=== PATIENT | female | born 1975 | race Caucasian/White ===

== ENCOUNTER 2020-04-19 15:37 | Emergency (ER) | payer SELFPAY ==
[2020-04-19] MEDS ORDERED: ONDANSETRON 4 MG TAB.RAPDIS PO ONE (15:59)
--- NOTE | 2020-04-19 16:03 | ER Document Report ---
ED Medical Screen (RME) - General Chief Complaint: Flank Pain Stated Complaint: FLANK PAIN Time Seen by Provider: 04/19/20 15:49 Primary Care Provider: AZALEA RYDER MD [Primary Care Provider] - Follow up as needed Mode of Arrival: Wheelchair Information source: Patient - HPI Notes: Patient is a 45-year-old female with a solitary kidney who presents with right flank pain that began this morning. Patient states that she has had urinary retention intermittently for the past 2 months with frequent UTIs. However, she began having sharp right flank pain this morning. She reports increased pressure like she needs to urinate but is unable to, and has not urinated since this morning. Patient was diagnosed with solitary kidney 8 years ago as she was found to only have a right kidney. She reports nausea and vomiting. - Related Data Allergies/Adverse Reactions: No Known Allergies Allergy (Verified 04/19/20 15:47) Physical Exam - Vital signs Vitals: Temp Pulse Resp BP Pulse Ox 98.4 F 116 H 20 137/108 H 96 04/19/20 15:45 04/19/20 15:45 04/19/20 15:45 04/19/20 15:45 04/19/20 15:45 - Abdominal Tenderness: Tender, Other - R abdomen; + CVA tenderness on the right. Course - Re-evaluation Re-evalutation: I have greeted and performed a rapid initial assessment of this patient. A comprehensive ED assessment and evaluation of the patient, analysis of test results and completion of medical decision making process will be conducted by an additional ED providers. - Vital Signs Vital signs: Temp Pulse Resp BP Pulse Ox 98.4 F 116 H 20 137/108 H 96 04/19/20 15:45 04/19/20 15:45 04/19/20 15:45 04/19/20 15:45 04/19/20 15:45 Doctor's Discharge - Discharge Referrals: AZALEA RYDER MD [Primary Care Provider] - Follow up as needed
[2020-04-19 16:35] LABS: ABSOLUTE BASOPHILS # (AUTO) 0.1 10^3/uL (0.0-0.2); ABSOLUTE EOSINOPHILS # (AUTO) 0.1 10^3/uL (0.0-0.6); ABSOLUTE LYMPHOCYTES (AUTO) 1.8 10^3/uL (0.5-4.7); ABSOLUTE MONOCYTES (AUTO) 0.9 10^3/uL (0.1-1.4); ABSOLUTE NEUT (AUTO) 12.9 10^3/uL (1.7-8.2); BASOPHILS % (AUTO) 0.6 % (0-2); EOSINOPHILS % (AUTO) 0.7 % (0-6); HEMATOCRIT 48.4 % (36.0-47.0); HEMOGLOBIN 17.2 g/dL (12.0-15.5); LYMPHOCYTES % (AUTO) 11.4 % (13-45); MEAN CORPUSCULAR HEMOGLOBIN 29.7 pg (27.0-33.4); MEAN CORPUSCULAR HGB CONC 35.6 g/dL (32.0-36.0); MEAN CORPUSCULAR VOLUME 83 fl (80-97); MONOCYTES % (AUTO) 5.5 % (3-13); PLATELET COUNT 250 10^3/uL (150-450); RED BLOOD COUNT 5.81 10^6/uL (3.72-5.28); RED CELL DISTRIBUTION WIDTH 13.6 % (11.5-14.0); SEGMENTED NEUTROPHILS % (AUTO) 81.8 % (42-78); TOTAL CELLS COUNTED % (AUTO) 100 %; WHITE BLOOD COUNT 15.7 10^3/uL (4.0-10.5)
[2020-04-19 16:56] LABS: ALBUMIN 4.7 g/dL (3.5-5.0); ALKALINE PHOSPHATASE 67 U/L (38-126); ANION GAP 14 (5-19); ASPARTATE AMINO TRANSFERASE 21 U/L (14-36); BILIRUBIN,DIRECT 0.1 mg/dL (0.0-0.4); BILIRUBIN,TOTAL 0.6 mg/dL (0.2-1.3); BLOOD UREA NITROGEN 9 mg/dL (7-20); CALCIUM 9.8 mg/dL (8.4-10.2); CARBON DIOXIDE 20 mmol/L (22-30); CHLORIDE 103 mmol/L (98-107); GLUCOSE 121 mg/dL (75-110); POTASSIUM 4.3 mmol/L (3.6-5.0); TOTAL PROTEIN 8.4 g/dL (6.3-8.2)
--- NOTE | 2020-04-19 17:06 | RADIOLOGY REPORT (SQ) ---
EXAM DESCRIPTION: CT ABD/PELVIS NO ORAL OR IV IMAGES COMPLETED DATE/TIME: 04/19/2020 4:43 pm REASON FOR STUDY: flank pain COMPARISON: None. TECHNIQUE: CT scan of the abdomen and pelvis performed without intravenous or oral contrast. Images reviewed with lung, soft tissue, and bone windows. Reconstructed coronal and sagittal MPR images revi ewed. All images stored on PACS. All CT scanners at this facility use dose modulation, iterative reconstruction, and/or weight based d osing when appropriate to reduce radiation dose to as low as reasonably achievable (ALARA). [facility]: Dose Right [facility]: CareDose [facility]: Dose Right [facility]: Teradose 4D [facility]: Smart [employer] RADIATION DOSE: CT Rad equipment meets quality standard of care and radiation dose reduction techniq ues were employed. CTDIvol: 17.9 mGy. DLP: 911 mGy-cm.mGy. LIMITATIONS: None. FINDINGS: LOWER CHEST: No significant findings. No nodules or infiltrates. NON-CONTRASTED LIVER, SPLEEN, ADRENALS: Evaluation limited by lack of IV contrast. No identified sign ificant masses. PANCREAS: No masses. No peripancreatic inflammatory changes. GALLBLADDER: No identified stones by CT criteria. No inflammatory changes to suggest cholecystitis. RIGHT KIDNEY AND URETER: No suspicious masses. Assessment limited by lack of IV contrast. No signif icant calcifications. No hydronephrosis or hydroureter. LEFT KIDNEY AND URETER: The left kidney is absent. No abnormal findings are seen in the left renal f nilay. AORTA AND RETROPERITONEUM: No aneurysm. No retroperitoneal masses or adenopathy. BOWEL AND PERITONEAL CAVITY: No masses or inflammatory changes. No free fluid. Incidental note is m frankie fecalization of several nondistended loops of small bowel. APPENDIX: Normal. PELVIS, BLADDER, AND ABDOMINAL WALL:No abnormal masses. No free fluid. Bladder normal. BONES: No significant findings. OTHER: No other significant finding. IMPRESSION: No evidence of urolithiasis or obstructive uropathy. No left kidney is demonstrated ; g iven normal morphology of the left adrenal gland, favor iatrogenic absence. Recommend correlation wi surgical history. Incidental finding of fecalized loops of small bowel suggests delayed transit. No evidence of bowel obstruction or acute intra-abdominal infectious/ inflammatory changes. COMMENT: Quality ID # [id number]: Final reports with documentation of one or more dose reduction techniques (e.g., Automated exposure control, adjustment of the mA and/or kV according to patient size, use of iterative reconstruction technique) TECHNICAL DOCUMENTATION: JOB ID: [id number] 2010 [employer]- All Rights Reserved Reading location - IP/workstation name: [email or web address]
--- NOTE | 2020-04-19 17:14 | ER Document Report ---
ED GI/ - General Chief Complaint: Flank Pain Stated Complaint: FLANK PAIN Time Seen by Provider: 04/19/20 15:49 Primary Care Provider: [facility] [Provider Group] - Follow up as needed AZALEA RYDER MD [ACTIVE STAFF] - Follow up as needed Mode of Arrival: Wheelchair Information source: Patient Notes: 45-year-old female history of only one kidney presents to the emergency room complaining of urinary retention with dysuria for the past 3 weeks. States she has been at [facility] twice in the past month for urinary tract infections. States she finished her antibiotics 3 weeks ago and symptoms started 2 days later. Has not been seen for symptoms prior to today. States she has not been able to urinate since early this morning. Complains of fever of 101.7. Took ibuprofen this morning around 6 AM for her symptoms. She denies any nausea, vomiting, no shortness of breath, no difficulty breathing. TRAVEL OUTSIDE OF THE [place] IN LAST 30 DAYS: No - Related Data Allergies/Adverse Reactions: No Known Allergies Allergy (Verified 04/19/20 15:47) Past Medical History - General Information source: Patient - Social History Smoking Status: Current Every Day Smoker Frequency of alcohol use: None Drug Abuse: None Family History: Reviewed & Not Pertinent Pulmonary Medical History: Reports: Hx Asthma Past Surgical History: Reports: Hx Section, Hx Tubal Ligation Review of Systems - Review of Systems Constitutional: Chills, Fever EENT: No symptoms reported Cardiovascular: No symptoms reported Respiratory: No symptoms reported Gastrointestinal: No symptoms reported Genitourinary: Dysuria, Retention Musculoskeletal: No symptoms reported Skin: No symptoms reported Neurological/Psychological: No symptoms reported -: Yes All other systems reviewed and negative Physical Exam - Vital signs Vitals: Temp Pulse Resp BP Pulse Ox 98.4 F 116 H 20 137/108 H 96 04/19/20 15:45 04/19/20 15:45 04/19/20 15:45 04/19/20 15:45 04/19/20 15:45 - General General appearance: Appears well, Alert In distress: Moderate - Respiratory Respiratory status: No respiratory distress Chest status: Nontender Breath sounds: Normal Chest palpation: Normal - Cardiovascular Rhythm: Tachycardia Heart sounds: Normal auscultation Murmur: No - Abdominal Inspection: Normal Distension: No distension Bowel sounds: Normal Tenderness: Nontender Organomegaly: No organomegaly - Genitourinary External exam: Normal. No: Lesions, Laceration Speculum exam: Normal, Cervix closed. No: Vaginal discharge, Lesions Vaginal bleeding: None Bimanuel exam: Normal, Cervical motion tender. No: Bladder/Urethral tender, Adnexal mass, Adnexal tenderness, Uterus enlarged Notes: [employer] Kenny PCT present during pelvic exam - Back Back: Normal, CVA tenderness - Right-sided - Neurological Neuro grossly intact: Yes Cognition: Normal Orientation: AAOx4 Megan Coma Scale Eye Opening: Spontaneous Megan Coma Scale Verbal: Oriented [place] Coma Scale Motor: Obeys Commands Megan Coma Scale Total: 15 Speech: Normal Motor strength normal: LUE, RUE, LLE, RLE Sensory: Normal - Skin Skin Temperature: Warm Skin Moisture: Dry Skin Color: Normal Course - Re-evaluation Re-evalutation: 04/19/20 18:10 Patient remains uncomfortable. Elevated white count, positive urine for infection. Blood cultures, IV Rocephin, bladder scanner, Dugan insertion, CT abdomen pelvis with IV contrast to rule out pyelonephritis., IV pain medication. 04/19/20 20:00 Patient is resting comfortably she is currently pain-free on exam. She denies any pain. Only had 72 cc of urine on the bladder scanner. Did not put a Dugan catheter in. Benign pelvic exam. Counseled to push fluids. Will be notified if any changes to her antibiotics based on her urine culture. Patient states she has been on both Keflex and Cipro. Will discharge home on Macrodantin and Pyridium. She was counseled on the importance of an outpatient follow-up with a urologist. Patient was given strict return to the emergency room guidelines. Return for any new or worsening symptoms. All questions were answered. Patient verbalized understanding and agrees with plan of care. 04/19/20 22:54 04/19/20 22:55 - Vital Signs Vital signs: Temp Pulse Resp BP Pulse Ox 98.6 F 105 H 16 151/93 H 98 04/19/20 20:51 04/19/20 20:51 04/19/20 20:51 04/19/20 20:51 04/19/20 20:51 - Laboratory Result Diagrams: 04/19/20 16:19 04/19/20 16:19 Laboratory results interpreted by me: 04/19/20 04/19/20 04/19/20 16:19 16:19 17:30 WBC 15.7 H RBC 5.81 H Hgb 17.2 H Hct 48.4 H Lymph % (Auto) 11.4 L Absolute Neuts (auto) 12.9 H Seg Neutrophils % 81.8 H Carbon Dioxide 20 L Glucose 121 H Total Protein 8.4 H Urine Protein 100 H Urine Blood MODERATE H Ur Leukocyte Esterase MODERATE H - Diagnostic Test Radiology reviewed: Reports reviewed Discharge - Discharge Clinical Impression: UTI (urinary tract infection) Qualifiers: Urinary tract infection type: site unspecified Hematuria presence: without hematuria Qualified Code(s): N39.0 - Urinary tract infection, site not specified Condition: Stable Disposition: HOME, SELF-CARE Instructions: Nitrofurantoin ([facility]), Urinary Anesthetic Agent ([facility]), Urinary Tract Infection ([facility]) Additional Instructions: Push fluids. Antibiotics and Pyridium as prescribed. Outpatient follow-up with urologist as discussed. Return to the emergency room for any new or worsening symptoms. Prescriptions: Nitrofurantoin Monohyd/M-Cryst [Macrobid 100 mg Capsule] 100 mg PO BID 7 Days #14 cap Phenazopyridine HCl [Pyridium 200 mg Tablet] 200 mg PO TID #6 tablet Referrals: AZALEA RYDER MD [ACTIVE STAFF] - Follow up as needed [facility] [Provider Group] - Follow up as needed
[2020-04-19] MEDS ORDERED: CEFTRIAXONE 1 GM/D5W RTU 1 GM/50 ML RTUPB IV ONE (17:15)
[2020-04-19 17:53] LABS: APPEARANCE,URINE TURBID; BILIRUBIN,URINE NEGATIVE (NEGATIVE); COLOR,URINE YELLOW; GLUCOSE, URINE NEGATIVE (NEGATIVE); KETONES,URINE NEGATIVE (NEGATIVE); LEUKOCYTE ESTERASE,URINE MODERATE (NEGATIVE); NITRITE,URINE NEGATIVE (NEGATIVE); PROTEIN,URINE 100 mg/dL (NEGATIVE); UROBILINOGEN,URINE NEGATIVE mg/dL (<2.0)
[2020-04-19] MEDS ORDERED: MORPHINE SULFATE 10 MG/ML INJ IV ONE (18:09)
--- NOTE | 2020-04-19 19:32 | RADIOLOGY REPORT (SQ) ---
EXAM DESCRIPTION: CT ABD/PELVIS WITH IV ONLY IMAGES COMPLETED DATE/TIME: 04/19/2020 7:14 pm REASON FOR STUDY: abdominal pain COMPARISON: CT abdomen and pelvis performed 04/19/2028 time stamped at 1643 hours TECHNIQUE: CT scan of the abdomen and pelvis performed using helical scanning technique with dynamic intravenous contrast injection. No oral contrast. Images reviewed with lung, soft tissue, and bone windows. Reconstructed coronal and sagittal MPR images reviewed. Delayed images for evaluation of the urinary system also acquired. All images stored on PACS. All CT scanners at this facility use dose modulation, iterative reconstruction, and/or weight based d osing when appropriate to reduce radiation dose to as low as reasonably achievable (ALARA). [facility]: Dose Right [facility]: CareDose [facility]: Dose Right [facility]: Teradose 4D [facility]: Dympol CONTRAST TYPE AND DOSE: contrast/concentration: Isovue 350.00 mmol/ml; Total Contrast Delivered: 51. 0 ml; Total Saline Delivered: 65.0 ml RENAL FUNCTION: BUN 9; creatinine 0.84 RADIATION DOSE: CT Rad equipment meets quality standard of care and radiation dose reduction techniq ues were employed. CTDIvol: 15.9 - 19.4 mGy. DLP: 1993 mGy-cm.. LIMITATIONS: None. FINDINGS: LOWER CHEST: No significant findings. No nodules or infiltrates. LIVER: Normal size. No masses. No dilated ducts. SPLEEN: Normal size. No focal lesions. PANCREAS: No masses. No significant calcifications. No adjacent inflammation or peripancreatic fluid collections. Pancreatic duct not dilated. GALLBLADDER: No identified stones by CT criteria. No inflammatory changes to suggest cholecystitis. ADRENAL GLANDS: No significant masses or asymmetry. RIGHT KIDNEY AND URETER: No solid masses. No significant calcifications. No hydronephrosis or hyd roureter. LEFT KIDNEY AND URETER: The left kidney is absent. No abnormal findings are seen in the left renal f inlay. No significant calcifications. No hydronephrosis or hydroureter. AORTA AND VESSELS: No aneurysm. No dissection. Renal arteries, SMA, celiac without stenosis. RETROPERITONEUM: No retroperitoneal adenopathy, hemorrhage or masses. BOWEL AND PERITONEAL CAVITY: No masses or inflammatory changes. No free fluid or peritoneal masses. APPENDIX: Normal. PELVIS: No mass. No free fluid. The bladder is largely decompressed. ABDOMINAL WALL: No masses. No hernias. BONES: No significant or acute findings. OTHER: No other significant finding. IMPRESSION: No evidence of acute intra-abdominal infectious/inflammatory process. No left kidney is demonstrated; given normal morphology other left adrenal gland, favor iatrogenic absence. Recommend correlation with surgical history. TECHNICAL DOCUMENTATION: JOB ID: [id number] Quality ID # [id number]: Final reports with documentation of one or more dose reduction techniques (e.g., Au tomated exposure control, adjustment of the mA and/or kV according to patient size, use of iterative reconstruction technique) 2010 [employer]- All Rights Reserved Reading location - IP/workstation name: [email or web address]
[2020-04-19] MEDS ORDERED: PHENAZOPYRIDINE HCL 200 MG TABLET PO ONE (19:59)
[2020-04-19 20:55] VITALS: BP 151/93
== END 2020-04-19 20:55 | disposition home or self-care (01) ==
LOC: ER 15:37
DX: N39.0 Urinary tract infection, site not specified (principal); R10.9 Unspecified abdominal pain; F17.200 Nicotine dependence, unspecified, uncomplicated
CPT/HCPCS: 99285; 96375; 96365; 36415; 87040; 87086; 84703; 85025; 87077; 87088; 80053; 81001; 87186; 87150 ×26; 74176; 74177; S0119; J2270; J3490; J0696

== ENCOUNTER 2020-04-26 11:30 | Emergency (ER) | payer SELFPAY | END 2020-04-26 12:12 | disposition left against medical advice (07) | LOC: ER 11:30 | DX: Z53.21 Procedure and treatment not carried out due to patient leaving prior to being seen by health care provider (principal) ==